=== PATIENT | male | born 2005 | race Hispanic/Latino ===

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

== ENCOUNTER 2024-07-15 20:09 | Emergency (ER) | payer OTHER ==
[~2024-07-15] VITALS: Ht 170.2 cm; Wt 75.0 kg
[~2024-07-15 20:09] MED LIST changes: +ALL DAY10 MG PO; +EPIPEN 2-P0.3 MG/0.3 IM; +PREDNISONE50 MG PO
[2024-07-15 20:23] VITALS: BP 131/83
[2024-07-15] MEDS ORDERED: NEOMYCIN-BACITRACIN-POLYMYXIN 0.5 GM/PAK PAK TOP ONE (20:25)
[2024-07-15] MEDS ORDERED: Diph, Acellular Pertussis, Tet 0.5 ML/VIAL (Tdap) SDV IM ONE (20:25)
[2024-07-15] MEDS ORDERED: POVIDONE IODINE 0.5 OZ/BTL TOP ONE (20:25)
[2024-07-15] MEDS ORDERED: KEFLEX500 MG PO (20:28)
[2024-07-15] MEDS ORDERED: CEPHALEXIN MONOHYDRATE 500 MG/CAP PO ONE (20:30)
[2024-07-15 20:31] VITALS: BP 86/51
[2024-07-15 20:33] VITALS: BP 125/78
[2024-07-15 20:45] VITALS: BP 138/82
[2024-07-15 20:59] VITALS: BP 138/82
== END 2024-07-15 20:59 | disposition home or self-care (01) | DRG 605 ==
LOC: ED 20:09
DX: S61.211A Laceration without foreign body of left index finger without damage to nail, initial encounter (principal); W26.0XXA Contact with knife, initial encounter; Y92.89 Other specified places as the place of occurrence of the external cause; Y99.0 Civilian activity done for income or pay
CPT/HCPCS: 90715